=== PATIENT | male | born 1990 | race Caucasian/White ===

== ENCOUNTER 2017-02-18 14:29 | Emergency (ER) | payer OTHER ==
[2017-02-18 15:23] LABS: EOSINOPHILS 1.2 % (0.0-6.0); EOSINOPHILS# 0.1 X 10^3uL (0.0-0.4); HEMATOCRIT 47.8 % (42.0-54.0); HEMOGLOBIN 16.2 g/dL (14.0-18.0); MEAN CELL VOLUME 82.9 fL (80.0-100.0); MEAN CORPUSCULAR HEMOGLOBIN 28.2 pg (29.0-35.0); MEAN PLATELET VOLUME 9.2 fL (7.4-10.4); MONOCYTES 11.9 % (2.0-10.0); MONOCYTES# 0.7 X 10^3uL (0.2-1.0); NEUTROPHILS 70.9 % (54.0-75.0); NEUTROPHILS# 4.4 X 10^3uL (2.6-6.7); PLATELET COUNT 165 X 10^3uL (130-440); RED BLOOD COUNT 5.76 X 10^6uL (4.20-6.10); RED CELL DISTRIBUTION WIDTH 12.1 % (11.5-14.5); WHITE BLOOD COUNT 6.2 X 10^3uL (3.9-10.7)
[2017-02-18 15:36] LABS: A/G RATIO 1.2; ALBUMIN 3.9 g/dL (3.5-5.0); ALKALINE PHOSPHATASE 58 U/L (38-126); ALT 42 U/L (21-72); AST 24 U/L (17-59); BILIRUBIN, TOTAL 1.8 mg/dL (0.2-1.3); BLOOD UREA NITROGEN 15 mg/dL (9-20); CALCIUM 8.8 mg/dL (8.4-10.2); CHLORIDE 103 mmol/L (98-107); CREATININE 1.1 mg/dL (0.7-1.3); EST GLOMERULAR FILTRATION RATE > 60 mL/min; GLUCOSE 95 mg/dL (70-100); LIPASE 33 U/L (23-300); POTASSIUM 3.7 mmol/L (3.5-5.1); SODIUM 141 mmol/L (137-145); TOTAL PROTEIN 7.2 g/dL (6.3-8.2)
[2017-02-18] MEDS ORDERED: HYDROmorphone HCL 1 MG/ML SYR ONE (15:57)
[2017-02-18] MEDS ORDERED: ONDANSETRON HCL 4 MG/2 ML VIAL ONE (15:57)
--- NOTE | 2017-02-18 16:09 | CT REPORT ---
HISTORY: Left upper quadrant abdominal pain. COMPARISON: None. TECHNIQUE: This examination was performed using automated exposure control, adjustment of mA or kV according to patient size, and/or use of iterative reconstruction technique. Multiple contiguous axial images were obtained from the lung bases through the pubic symphysis following administration of intravenous con trast. 100cc Isovue 300 contrast. FINDINGS: The visualized lung parenchyma and cardiac structures are unremarkable. Abdomen/pelvis: The liver is normal in appearance without a mass or evidence of intrahepatic ductal d ilatation. The gallbladder is unremarkable, there is no cholelithiasis or pericholecystic fluid. Th e spleen is normal in appearance. There is no pancreatic mass or ductal dilatation. The adrenal glands are unremarkable. The right an d left kidneys are normal in appearance. No mass or hydronephrosis is noted. The stomach, small bowel, and large bowel are unremarkable. No significant free fluid is noted. The urinary bladder is unremarkable. Vascular structures of the abdomen and pelvis are unremarkable. Normal caliber appendix visualized in the right lower quadrant without associated inflammatory butts e. No suspicious bony lesions are seen. There are mildly prominent mesenteric lymph nodes identified which are most pronounced in the left up per quadrant of the abdomen, there is some associated mesenteric edema noted. IMPRESSION: Prominent mesenteric lymph nodes with associated mesenteric edema which are most pronounced in the le ft upper quadrant of the abdomen suggesting mesenteric adenitis. Final Electronic Signature: This report was electronically signed by Nathanael Hackett MD, FACR on 2016 4:07 PM. leeann /
--- NOTE | 2017-02-18 16:44 | ER PHYSICIAN DOCUMENTATION ---
Physician Documentation [facility] Name:Aaron Coughlin Age:26 yrs Sex:Male :1990 Arrival Date:02/18/2017 Time:14:29 Bed4 Private MD: Dakota Hay Disposition: 02/20 08:57 Chart complete. tl1 Disposition: 02/18/17 16:36 Discharged to Home/Self Care. Impression: Mesenteric Lymphadenitis. - Condition is Good. - Discharge Instructions: Lymph Node - ADENITIS, MESENTERIC. - Prescriptions for [place] 5- 325 mg Oral - take 1 tablet by ORAL route every 6 hours As needed; 12 tablet. Zofran 4 mg Oral Tablet - take 1-2 tablet by ORAL route every 4-6 hours As needed; 10 tablet. - Medical Reconciliation form form. - Follow up: Private Physician; When: 4- 6 days; Reason: Recheck today's complaints, Continuance of care. - Problem is new. - Symptoms have improved. HPI: 02/18 14:32 This 26 yrs old Male presents to ER with complaints of Abdominal Pain. tl1 14:32 The patient presents with abdominal pain. tl1 14:32 3 day h/o epigastric/RUQ pain that is steady, waxing and waning, sharp aching and tl1 gradually worse. He has vomited several times. No relation to meals or other activity. Normal BMs, w/o blood or diarrhea. No urinary symptoms. No h/u PUD or NSAID use. No f/c/s. No prior surgeries. Historical: - Allergies: No known drug Allergies; - Home Meds: 1. None - PMHx: None; - PSHx: Tonsillectomy; faciotomy; - Tetanus: unknown. - Immunization history: Pneumococcal vaccine status is unknown. - Ebola Screening: : Patient denies exposure to infectious person. Patient denies travel to an Ebola-affected area in the 21 days before illness onset. . - Social history: Smoking status: Patient states was never smoker of tobacco. Patient uses marijuana Patient/guardian denies using alcohol. ROS: 14:40 Abdomen/GI: Positive for abdominal pain, nausea, vomiting, anorexia, Negative for tl1 diarrhea, constipation, dysphagia, hematemesis, black/tarry stool, rectal bleeding. 14:40 All other systems are negative. Exam: 14:40 Head/Face: Normocephalic, atraumatic. tl1 Eyes: Pupils equal round and reactive to light, extra-ocular motions intact. Lids and lashes normal. Conjunctiva and sclera are non-icteric and not injected. Cornea within normal limits. Periorbital areas with no swelling, redness, or edema. 14:40 Neck: Trachea midline, no thyromegaly or masses palpated, and no cervical tl1 lymphadenopathy. Supple, full range of motion without nuchal rigidity, or vertebral point tenderness. No Meningismus. 14:40 Constitutional: The patient appears alert, awake, well developed, well hydrated, well groomed, well nourished, uncomfortable. 14:40 Cardiovascular: Rate: normal, Rhythm: regular, Heart sounds: normal. 14:40 Respiratory: Respirations: normal, Breath sounds: are normal. 14:40 Abdomen/GI: Inspection: abdomen appears normal, Bowel sounds: normal, Palpation: soft, moderate abdominal tenderness, in the epigastric area, right upper quadrant and left upper quadrant, rebound tenderness, is not appreciated, voluntary guarding, is not appreciated, Indicators: McBurney's point is not tender, Scott's sign is negative, Liver: no appreciated palpable abnormalities. 14:40 Back: CVA tenderness, is absent. 14:40 Skin: Exam negative for acute changes. 14:40 Neuro: Exam negative for acute changes. Vital Signs: 14:51 BP 155 / 92; Pulse 62; Resp 16; Temp 97.5; Pulse Ox 97% on R/A; Pain 5/10; st 15:44 BP 149 / 75; Pulse 64; Pulse Ox 98% ; st 15:49 Pain 9/10; st 16:23 BP 135 / 75; Pulse 63; Pulse Ox 93% ; st 16:44 Pain 3/10; st MDM: 14:32 Patient medically screened. tl1 16:00 Differential diagnosis: appendicitis, bowel obstruction, cholecystitis, Cholelithiasis, tl1 diverticulitis, gastritis, gastroesophageal reflux disease, Hepatitis, Perf. Duodenal Ulcer, Perf. Gastric Ulcer, Mesenteric adenitis. Data reviewed: vital signs, nurses notes, lab test result(s), amylase and lipase, CBC, electrolytes, hepatic panel, radiologic studies, CT scan, and as a result, I will discharge patient. Counseling: I had a detailed discussion with the patient and/or guardian regarding: the historical points, exam findings, and any diagnostic results supporting the discharge/admit diagnosis, lab results, radiology results, the need for outpatient follow up, to return to the emergency department if symptoms worsen or persist or if there are any questions or concerns that arise at home. Medication response: The patient's symptoms have improved, Dilaudid. Response to treatment: the patient's symptoms have mildly improved after treatment, and as a result, I will discharge patient. ED course: Hemodynamically stable. Serial exams benign. Pain well controlled with modest doses of dilaudid.. 16:00 Admission orders: after a detailed discussion of the patient's condition and case, the [facility] admit orders are written by me. Special discussion: Discussed diagnosis of mesenteric adenitis, expected course, and what to return for.. 02/18 15:34 Order name: CBC AUTO DIF, MDIF/RMOR IF IND; Complete Time: 09:04 EDWY 02/20 09:02 Interpretation: WHITE BLOOD COUNT 6.2; HEMOGLOBIN 16.2; HEMATOCRIT 47.8; PLATELET COUNT 1 165. 02/18 15:37 Order name: COMPREHENSIVE METABOLIC PANEL; Complete Time: 09:04 EDMS 02/20 09:02 Interpretation: Normal Except: BILIRUBIN, TOTAL 1.8. [facility] 02/18 15:37 Order name: LIPASE; Complete Time: 09:04 EDMS 02/20 09:02 Interpretation: Normal: LIPASE 33. [facility] 02/18 16:11 Order name: CAT SCAN; ABD/PEL W [id number]; Complete Time: 09:04 EDWY 02/20 09:03 Interpretation: Normal Except: mesenteric adenitis. [facility] Dispensed Medications: 16:00 Drug: Zofran 4 mg; Route: IVP; Infused Over: 2 mins; Site: left antecubital; st 16:25 Follow up: Response: Nausea is decreased st 16:00 Drug: Dilaudid 0.5 mg; Route: IVP; Site: left antecubital; st 16:25 Follow up: Response: Pain is decreased st Signatures: Franci Hauser RN RN st Leigh, Tom, MD MD [facility]
--- NOTE | 2017-02-18 16:44 | ER NURSING DOCUMENTATION ---
Nurse's Notes [facility] Name:Aaron Coughlin Age:26 yrs Sex:Male :1990 Arrival Date:02/18/2017 Time:14:29 Bed4 Private MD: Diagnosis:Mesenteric Lymphadenitis Presentation: 02/18 14:39 Acuity: BRIAN 3 st 14:48 Presenting complaint: Patient states: pt has LUQ pain that started when he had st some N/V and has continued past the N/V. Transition of care: Home. 14:48 Method Of Arrival: Private Vehicle st Triage Assessment: 14:50 General: Appears in no apparent distress, Behavior is cooperative. Pain: Complains of st pain in right upper quadrant Pain currently is 5 out of 10 on a pain scale. Quality of pain is described as Pain began 2-3 days ago. GI: Abdomen is flat, non- distended Abd is soft X 4 quads Abdomen is tender to palpation in right upper quadrant Reports diarrhea. Historical: - Allergies: No known drug Allergies; - Home Meds: 1. None - PMHx: None; - PSHx: Tonsillectomy; faciotomy; - Tetanus: unknown. - Immunization history: Pneumococcal vaccine status is unknown. - Ebola Screening: : Patient denies exposure to infectious person. Patient denies travel to an Ebola-affected area in the 21 days before illness onset. . - Social history: Smoking status: Patient states was never smoker of tobacco. Patient uses marijuana Patient/guardian denies using alcohol. Screenin:53 Infectious Disease Risk None. Abuse screen: Denies threats or abuse. Denies injuries st from another. Nutritional screening: No deficits noted. Vital Signs: 14:51 BP 155 / 92; Pulse 62; Resp 16; Temp 97.5; Pulse Ox 97% on R/A; Pain 5/10; st 15:44 BP 149 / 75; Pulse 64; Pulse Ox 98% ; st 15:49 Pain 9/10; st 16:23 BP 135 / 75; Pulse 63; Pulse Ox 93% ; st 16:44 Pain 3/10; st ED Course: 14:31 Patient arrived in ED. ama 14:32 Dakota Shipley MD is Attending Physician. tl1 14:39 Franci Hauser RN is Primary Nurse. st 14:[address] 14:47 Inserted peripheral IV: 20 gauge in left antecubital area and blood collected. st 14:53 Valuables Remains with patient Patient has correct armband on for positive st identification. Placed in gown. Bed in low position. Pulse Ox - RN Monitoring Only NIBP On - RN Monitoring Only. 15:[address] pm1 15:[address]. pm1 Administered Medications: 16:00 Drug: Zofran 4 mg; Route: IVP; Infused Over: 2 mins; Site: left antecubital; st 16:25 Follow up: Response: Nausea is decreased st 16:00 Drug: Dilaudid 0.5 mg; Route: IVP; Site: left antecubital; st 16:25 Follow up: Response: Pain is decreased st Outcome: 16:36 Discharge ordered by . tl1 16:43 Discharged to home ambulatory. st 16:43 Condition: improved 16:43 Discharge instructions given to patient, Instructed on discharge instructions, follow up and referral plans. medication usage, Prescriptions given X 2. 16:[address] ED[address] 03 12:20 Discharge F/U Call: Spoke with: patient. Overall Care on a scale of 1-10 with 10 ma being the best care, you rate our care as: Other comments: Very satisfied with care States is feeling better Signatures: Franci Hauser, RN Nel Ayoub, Ray Mckinney RN, ma pm1 Darren Rich, Reg Reg Dakota Kapoor MD MD tl1
== END 2017-02-18 16:44 | disposition home or self-care (01) ==
LOC: ER 14:29
DX: I88.0 Nonspecific mesenteric lymphadenitis (principal); R11.2 Nausea with vomiting, unspecified; R10.11 Right upper quadrant pain; R10.12 Left upper quadrant pain; R10.13 Epigastric pain
CPT/HCPCS: 74177; 80053; 83690; 85025; 96374; 96375; 99284; J1170; J2405